=== PATIENT | female | born 1955 | race Caucasian/White ===

== ENCOUNTER 2017-04-04 19:31 | Emergency (ER) | payer BC ==
[~2017-04-04] VITALS: Ht 149.9 cm; Wt 56.0 kg
[~2017-04-04 19:31] MED LIST: AMLO5TAB2 PO; LACTCAP8 PO; LISI-519 PO; MELA5 PO; OCUVTAB4 PO; OMEGCAP PO; PRAV10TA PO; VITA2000 PO
[2017-04-04 19:34] VITALS: BP 155/84; PULSE 103; RESP 16; TEMP 98.5; O2SAT 97
[2017-04-04 19:48] VITALS: BP 156/83; PULSE 97; RESP 18; O2SAT 99
[2017-04-04] MEDS ORDERED: SODIUM CHLOR 0.9% 1000 ML INJ 1,000 ML IV SCH (20:08)
[2017-04-04] MEDS ORDERED: PANTOPRAZOLE SODIUM 40 MG VIAL IVP ONE (20:15)
[2017-04-04] MEDS ORDERED: ONDANSETRON HCL 4 MG/2 ML VIAL IVP ONE (20:15)
[2017-04-04] MEDS ORDERED: MORPHINE SULFATE 2 MG/ML INJ IV PUSH ONE (20:15)
[2017-04-04 20:32] VITALS: O2SAT 98
[2017-04-04 20:33] VITALS: BP 142/67
[2017-04-04 20:42] LABS: AUTOMATED NEUTROPHIL # 12.7 TH/MM3 (1.8-7.7); BASOPHIL # 0.1 TH/MM3 (0-0.2); BASOPHIL % 0.4 % (0.0-2.0); EOSINOPHIL # 0.1 TH/MM3 (0-0.4); EOSINOPHIL % 0.4 % (0.0-4.0); HEMATOCRIT 43.1 % (35.0-46.0); HEMOGLOBIN 14.4 GM/DL (11.6-15.3); LYMPH % 8.5 % (9.0-44.0); LYMPHOCYTE # 1.3 TH/MM3 (1.0-4.8); MEAN CORPUSCULAR HEMOGLOBIN 31.1 PG (27.0-34.0); MEAN CORPUSCULAR HGB CONC 33.4 % (32.0-36.0); MEAN PLATELET VOLUME 7.6 FL (7.0-11.0); MONO % 6.5 % (0.0-8.0); NEUT % 84.2 % (16.0-70.0); PLATELET COUNT 261 TH/MM3 (150-450); RED BLOOD COUNT 4.63 MIL/MM3 (4.00-5.30); RED CELL DISTRIBUTION WIDTH 12.7 % (11.6-17.2); WHITE BLOOD COUNT 15.1 TH/MM3 (4.0-11.0)
[2017-04-04 20:55] LABS: INTERNATIONAL NORMALIZED RATIO 1.1 RATIO; PROTHROMBIN TIME - PATIENT 11.1 SEC (9.8-11.6)
[2017-04-04 20:57] LABS: ALBUMIN 3.9 GM/DL (3.4-5.0); AST (GOT) 20 U/L (15-37); BICARBONATE 26.3 MEQ/L (21.0-32.0); BLOOD UREA NITROGEN 28 MG/DL (7-18); CALCIUM 8.7 MG/DL (8.5-10.1); CHLORIDE 104 MEQ/L (98-107); CREATININE 0.99 MG/DL (0.50-1.00); GLOMERULAR FILTRATION RATE 57 ML/MIN (>89); GLUCOSE,RANDOM 100 MG/DL (74-106); LIPASE 150 U/L (73-393); SODIUM (NA) 138 MEQ/L (136-145)
[2017-04-04 20:58] LABS: ALT (GPT) 23 U/L (10-53)
[2017-04-04] MEDS ORDERED: metroNIDAZOLE 500 MG INJ 100 ML IV ONE (21:00)
[2017-04-04 21:01] LABS: ALKALINE PHOSPHATASE 89 U/L (45-117); TOTAL BILIRUBIN ADULT 1.1 MG/DL (0.2-1.0); TOTAL PROTEIN 7.6 GM/DL (6.4-8.2)
--- NOTE | 2017-04-04 21:08 | PD ---
HPI Chief Complaint: GI Complaint Time Seen by Provider: 19:45 Travel History International Travel<30 days: No Contact w/Intl Traveler<30days: No Traveled to known affect area: No History of Present Illness HPI 61-year-old female that presents to the ED for evaluation of abdominal pain with nausea and vomited and diarrhea since yesterday. Per patient yesterday she was in the airport and she had [employer] [address] Since she developed the symptoms. The patient nausea and vomiting has improved but she still has the bloody diarrhea and some abdominal cramping. She has had a history of diverticulitis in the past and states that he feels somewhat similar but she is more concerned about the blood. She states that she believes she got food poisoning. She states that the pain currently set out of his only cramping. Has no urinary symptoms. No allergies to medication. No nausea or vomiting at this time. Per patient she feels like she has lost her appetite and is hesitant to drink or eat much because of the nausea and vomited she had before. She denies any recent surgeries to her abdomen. She had a colonoscopy in the past. PFSH Past Medical History High Cholesterol: Yes Hypertension: Yes Tetanus Vaccination: Unknown Influenza Vaccination: Yes ?: Not LMP: n/a : 2 Para: 2 Past Surgical History Section: Yes Other Surgery: Yes (b[place], hernia X3 ) Social History Alcohol Use: Yes (social ) Tobacco Use: No Substance Use: No Allergies-Medications (Allergen,Severity, Reaction): Coded Allergies: No Known Allergies (Unverified , 04/04/17) Reported Meds & Prescriptions Reported Meds & Active Scripts Active Cipro (Ciprofloxacin HCl) 500 Mg Tab 500 Mg PO BID 10 Days Flagyl (Metronidazole) 500 Mg Tab 500 Mg PO BID 10 Days Zofran (Ondansetron HCl) 4 Mg Tab 4 Mg PO Q6HR PRN Hydrocodone-Acetamin 5-325 mg (Hydrocodone/Acetaminophen) 5 Mg-325 Mg Tablet 5 Tab PO Q6HR PRN Lisinopril 5 Mg Tab 5 Mg PO DAILY Pravastatin 10 Mg Tab 10 Mg PO DAILY Reported Preservision Areds (Multiple Vitamins W/ Minerals) 1 Tab 1 Tab PO DAILY Melatonin 5 Mg Tab 5 Mg PO HS Vitamin D3 (Cholecalciferol) 2,000 Unit Cap 2,000 Units PO DAILY [place]-3 Fish Oil/Vitamin (Fish Oil-Cholecalciferol) 1,000-1,000 Mg Cap 1 Cap PO DAILY Review of Systems Except as stated in HPI: all other systems reviewed are Neg Physical Exam Narrative GENERAL: SKIN: Warm and dry. HEAD: Atraumatic. Normocephalic. EYES: Pupils equal and round. No scleral icterus. No injection or drainage. ENT: No nasal bleeding or discharge. Mucous membranes pink and moist. Tongue is midline. No blood deviation. NECK: Trachea midline. No JVD. CARDIOVASCULAR: Regular rate and rhythm. No murmurs, S3, S4. RESPIRATORY: No accessory muscle use. Clear to auscultation. Breath sounds equal bilaterally. GASTROINTESTINAL: Abdomen soft, patient has discomfort to the left lower quadrant of the abdomen especially with deep palpation, nondistended. Hepatic and splenic margins not palpable. MUSCULOSKELETAL: Extremities without clubbing, cyanosis, or edema. No obvious deformities. NEUROLOGICAL: Awake and alert. No obvious cranial nerve deficits. Motor grossly within normal limits. Five out of 5 muscle strength in the arms and legs. Normal speech. PSYCHIATRIC: Appropriate mood and affect; insight and judgment normal. Data Data Last Documented VS Vital Signs Date Time Temp Pulse Resp B/P (MAP) Pulse Ox O2 Delivery O2 Flow Rate FiO2 04/04/17 21:49 85 18 134/68 (90) 99 Room Air 04/04/17 19:34 98.5 Orders Orders Complete Blood Count With Diff (04/04/17 20:08) Comprehensive Metabolic Panel (04/04/17 20:08) Lipase (04/04/17 20:08) Prothrombin Time / Inr (Pt) (04/04/17 20:08) Act Partial Throm Time (Ptt) (04/04/17 20:08) Ct Abd/Pel W Iv Contrast(Rout) (04/04/17 20:08) Iv Access Insert/Monitor (04/04/17 20:08) Ecg Monitoring (04/04/17 20:08) Oximetry (04/04/17 20:08) Ondansetron Inj (Zofran Inj) (04/04/17 20:15) Pantoprazole Inj (Protonix Inj) (04/04/17 20:15) Sodium Chlor 0.9% 1000 Ml Inj (Ns 1000 M (04/04/17 20:08) Morphine Inj (Morphine Inj) (04/04/17 20:15) Metronidazole 500 Mg Inj (Flagyl 500 Mg (04/04/17 21:00) Sodium Chlor 0.9% 1000 Ml Inj (Ns 1000 M (04/04/17 21:15) Iohexol 350 Inj (Omnipaque 350 Inj) (04/04/17 21:50) Ciprofloxacin (Cipro) (04/04/17 22:30) Ed Discharge Order (04/04/17 22:17) Labs Laboratory Tests Test 04/04/17 20:20 White Blood Count 15.1 TH/MM3 Red Blood Count 4.63 MIL/MM3 Hemoglobin 14.4 GM/DL Hematocrit 43.1 % Mean Corpuscular Volume 93.0 FL Mean Corpuscular Hemoglobin 31.1 PG Mean Corpuscular Hemoglobin Concent 33.4 % Red Cell Distribution Width 12.7 % Platelet Count 261 TH/MM3 Mean Platelet Volume 7.6 FL Neutrophils (%) (Auto) 84.2 % Lymphocytes (%) (Auto) 8.5 % Monocytes (%) (Auto) 6.5 % Eosinophils (%) (Auto) 0.4 % Basophils (%) (Auto) 0.4 % Neutrophils # (Auto) 12.7 TH/MM3 Lymphocytes # (Auto) 1.3 TH/MM3 Monocytes # (Auto) 1.0 TH/MM3 Eosinophils # (Auto) 0.1 TH/MM3 Basophils # (Auto) 0.1 TH/MM3 CBC Comment DIFF FINAL Differential Comment Prothrombin Time 11.1 SEC Prothromb Time International Ratio 1.1 RATIO Activated Partial Thromboplast Time 29.5 SEC Blood Urea Nitrogen 28 MG/DL Creatinine 0.99 MG/DL Random Glucose 100 MG/DL Total Protein 7.6 GM/DL Albumin 3.9 GM/DL Calcium Level 8.7 MG/DL Alkaline Phosphatase 89 U/L Aspartate Amino Transf (AST/SGOT) 20 U/L Alanine Aminotransferase (ALT/SGPT) 23 U/L Total Bilirubin 1.1 MG/DL Sodium Level 138 MEQ/L Potassium Level 3.7 MEQ/L Chloride Level 104 MEQ/L Carbon Dioxide Level 26.3 MEQ/L Anion Gap 8 MEQ/L Estimat Glomerular Filtration Rate 57 ML/MIN Lipase 150 U/L MDM Medical Decision Making Medical Screen Exam Complete: Yes Emergency Medical Condition: Yes Medical Record Reviewed: Yes Interpretation(s) CBC & BMP Diagram 04/04/17 20:20 Total Protein 7.6, Albumin 3.9, Calcium Level 8.7, Alkaline Phosphatase 89, Aspartate Amino Transf (AST/SGOT) 20, Alanine Aminotransferase (ALT/SGPT) 23, Total Bilirubin 1.1 H Last Impressions Abdomen/Pelvis CT 04/04/172007 Signed Impressions: Service Date/Time: Tuesday, April 04, 2017 21:33 - CONCLUSION: 1. Edematous thickening of the colon extending from the distal transverse colon to the proximal sigmoid colon characteristic of colitis. 2. Large hepatic cyst. 3. No other significant abnormality. Deshaun Brooks MD Differential Diagnosis Diverticulitis versus acute abdomen versus colitis versus diarrhea versus gastroenteritis Narrative Course 61-year-old female that presents to the ED for evaluation of abdominal pain and diarrhea. Patient was properly examined and was found to have signs and symptoms concerning for diverticulitis versus colitis. Labs and imaging were ordered. Patient agrees with this plan. Patient was given IV fluids and pain medication as well as Flagyl. Labs and imaging were consistent with colitis. Patient agrees with discharge plan. Patient will be discharged with prescriptions for Flagyl and Cipro. Told to drink plenty of fluids. Given prescription for Zofran as well as Lortab for pain to use as needed. Follow with PCP. See ED worsening symptoms. Diagnosis Primary Impression: Colitis, acute Patient Instructions: General Instructions, Narcotic given in the ED Additional Instructions: Take medication as prescribed. Follow with PCP. See ED worsening symptoms. Med/Other Pt SpecificInfo: Prescription(s) given Scripts Ciprofloxacin (Cipro) 500 Mg Tab 500 MG PO BID for Infection for 10 Days, #20 TAB 0 Refills Prov: Lola Aguilar MD 04/04/17 Metronidazole (Flagyl) 500 Mg Tab 500 MG PO BID for Infection for 10 Days, #20 TAB 0 Refills Prov: Lola Aguilar MD 04/04/17 Ondansetron (Zofran) 4 Mg Tab 4 MG PO Q6HR Y for NAUSEA OR VOMITING, #10 TAB 0 Refills Prov: Lola Aguilar MD 04/04/17 Hydrocodone/Acetaminophen (Hydrocodone-Acetamin 5-325 mg) 5 Mg-325 Mg Tablet 5 TAB PO Q6HR Y for PAIN SCALE 1 TO 10, #10 Prov: Lola Aguilar MD 04/04/17 Disposition: 01 DISCHARGE HOME Condition: Stable [place] Apr 04, 2017 21:08
[2017-04-04] MEDS ORDERED: SODIUM CHLOR 0.9% 1000 ML INJ 1,000 ML IV ONE (21:15)
[2017-04-04 21:49] VITALS: BP 134/68; PULSE 85; RESP 18; O2SAT 99
[2017-04-04] MEDS ORDERED: IOHEXOL 350 MG/ML 10 ML VIAL (for RAD DIAG) IVCONTRAST ONE (21:50)
--- NOTE | 2017-04-04 22:12 | RADRPT ---
EXAM DATE/TIME: 04/04/2017 21:33 [facility] COMPARISON: No previous studies available for comparison. INDICATIONS : Left sided abdominal pain with nausea and vomiting X 2 days. IV CONTRAST: 96 cc Omnipaque 350 (iohexol) IV ORAL CONTRAST: No oral contrast ingested. RADIATION DOSE: 6.64 CTDIvol (mGy) MEDICAL HISTORY : Hypercholesterolemia. Renal calculi. Hypertension. SURGICAL HISTORY : section. ENCOUNTER: Initial ACUITY: 2 days PAIN SCALE: 6/10 LOCATION: Left abdomen TECHNIQUE: Volumetric scanning of the abdomen and pelvis was performed. Using automated exposure control and ad justment of the mA and/or kV according to patient size, radiation dose was kept as low as reasonably achievable to obtain optimal diagnostic quality images. DICOM format image data is available electro nically for review and comparison. FINDINGS: LOWER LUNGS: The visualized lower lungs are clear. LIVER: 2 large cysts are identified centrally within the liver. There is a 7.6 cm cyst in the medial segment of the left hepatic lobe and a 13 cm cyst in the right hepatic lobe. There are parenchyma otherwise appears normal. There is no evidence of biliary duct dilatation. SPLEEN: Normal size without lesion. PANCREAS: Within normal limits. KIDNEYS: Normal in size and shape. There is no mass, stone or hydronephrosis. Small subcentimeter cysts are i dentified in each kidney. ADRENAL GLANDS: Within normal limits. VASCULAR: There is no aortic aneurysm. BOWEL/MESENTERY: Colonic wall thickening and edema is identified from the distal transverse colon throughout the desce nding colon and proximal sigmoid colon. The proximal colon and small bowel are unremarkable. ABDOMINAL WALL: Within normal limits. RETROPERITONEUM: There is no lymphadenopathy. BLADDER: No wall thickening or mass. REPRODUCTIVE: Within normal limits. INGUINAL: There is no lymphadenopathy or hernia. MUSCULOSKELETAL: Within normal limits for patient age. CONCLUSION: 1. Edematous thickening of the colon extending from the distal transverse colon to the proximal sigmo id colon characteristic of colitis. 2. Large hepatic cyst. 3. No other significant abnormality. Deshaun Brooks MD on April 04, 2017 at 22:04 Board Certified Radiologist. This report was verified electronically.
[2017-04-04] MEDS ORDERED: METR-1 PO (22:20)
[2017-04-04] MEDS ORDERED: ZOFR4TAB PO (22:20)
[2017-04-04] MEDS ORDERED: CIPR-9 PO (22:20)
[2017-04-04] MEDS ORDERED: HYDR-3516 PO (22:20)
[2017-04-04] MEDS ORDERED: CIPROFLOXACIN 500 MG TAB PO ONE (22:30)
== END 2017-04-04 22:51 | disposition home or self-care (01) ==
LOC: NEPC 19:31
DX: K52.9 Noninfective gastroenteritis and colitis, unspecified (principal); I10 Essential (primary) hypertension; E78.00 Pure hypercholesterolemia, unspecified
CPT/HCPCS: 74177; 80053; 83690; 85025; 85610; 85730; 96361; 96365; 96375; 99285; C9113; J2270; J2405; J7030; Q9967